=== PATIENT | male | born 1980 | race Caucasian/White ===

== ENCOUNTER 2024-07-25 03:06 | Emergency (ER) | payer MEDICAID, SELFPAY ==
--- NOTE | ~2024-07-25 | XR_ITS ---
EXAMINATION: XR CHEST CLINICAL INFORMATION: cough/sob COMPARISON: May 09, 2010. TECHNIQUE: Frontal view of the chest was obtained. FINDINGS: No significant abnormality is noted involving the heart, lungs, mediastinum, bony thorax or soft tissues. XR/XR chest 1V IMPRESSION: Unremarkable examination. Electronically signed by: Jourdan Smith MD 07/25/2024 03:53 AM [facility]
[2024-07-25 03:07] VITALS: BP 135/84; PULSE 110; RESP 20; TEMP 37.1; O2SAT 100; BMI 28.8
[2024-07-25 03:31] VITALS: BP 127/74; PULSE 98; RESP 20; TEMP 36.9; O2SAT 99
--- NOTE | 2024-07-25 03:43 | ED.ASTHMA ---
HPI - Asthma General Chief Complaint: Asthma Stated Complaint: Headache, sob Time Seen by Provider: 07/25/24 03:24 Source: patient Mode of arrival: ambulatory Limitations: no limitations History of Present Illness ED Provider: HPI Narrative: Patient's history of asthma complaining of shortness a breath with cough for 5 hours unable to speak full sentences no fever no chills also patient has been congested for last few days Related Data Previous Rx's ?Medication ?Instructions ?Recorded albuterol sulfate 2.5 mg/3 mL 2.5 mg (3 mL) inhalation Q4-6H PRN 07/25/24 (0.083 %) solution for nebulization shortness of breath or wheezing #90 mL albuterol sulfate 90 mcg/actuation 2 puff inhalation Q6H PRN 07/25/24 aerosol inhaler shortness of breath or wheezing #8.5 grams prednisone 20 mg tablet 40 mg (2 x 20 mg) PO DAILY #10 tabs 07/25/24 Allergies Allergy/AdvReac Type Severity Reaction Status Date / Time SEASONAL ALLERGIES Allergy Unknown ALLERGIC Uncoded 07/25/24 03:13 RHINITIS Review of Systems Review of Systems: Yes all other systems are reviewed and are negative PMFSH Social History Social History Alcohol intake: never Smoked in Last 30 Days: Yes Use of substances other than those prescribed or required for medical reasons: Yes Substance Use Type: Marijuana Substance Use Frequency: Occasionally Advance Directives: No Advance Directives Information Provided: Yes Do you have a plan to hurt others: No Plan Physical Exam Vital Signs: Vital Signs: Last Vital Signs Temp 98.7 F 07/25/24 06:17 Pulse 86 07/25/24 06:17 Resp 18 07/25/24 06:17 BP 95/62 07/25/24 06:17 Pulse Ox 96 07/25/24 06:17 O2 Del Method Room Air 07/25/24 06:17 BMI result Body Mass Index 28.8 Appearance: Alert. Oriented X3. No acute distress. Eyes: No pallor or icterus ENT: Pharynx normal. Oral Mucosa moist Neck: Normal inspection. Neck supple. CVS: Normal heart rate and rhythm. Pulses normal. Bilateral wheezing n no rales Abdomen: Soft and nontender. Bowel sounds are present, no mass palpable, no CVA tenderness Skin: Skin warm and dry. Normal skin color. Normal skin turgor. Extremities: No lower extremity edema. No calf tenderness Neuro: Oriented X 3. No motor deficit. Medications Administered Discontinued Medications Generic Name Dose Route Start Last Admin Trade Name Freq PRN Reason Stop Dose Admin Albuterol Sulfate 5 mg/ 0 mg 07/25/24 04:02 07/25/24 04:15 Albuterol/Ipratropium 3 ml INHALE 07/25/24 04:03 1 each ONCE ONE Administration Prednisone 60 mg 07/25/24 04:02 07/25/24 04:22 Prednisone 20 Mg Tablet PO 07/25/24 04:03 60 mg ONCE ONE Administration Medical Decision Making Medical Decision Making [facility] Narrative: Patient's asthma with increased shortness a breath felt better after nebulizing treatment steroids discharge patient chest x-ray negative COVID flu RSV negative patient is saturating 96% room air Lab Data MDM Lab Attestation statement: I reviewed the patient's lab results. Labs: Lab Results 07/25/24 Range/Units 03:35 Influenza Type A (PCR) NEGATIVE (Negative) Influenza Type B (PCR) NEGATIVE (Negative) RSV RNA Qual (PCR) NEGATIVE (Negative) SARS-CoV-2 RNA (RT-PCR) NEGATIVE (Negative) Independent Interpretation I performed an independent interpretation of an: Plain X-Ray Interpretation: NAD Radiology Impression Discussion of test interpretation with radiology: I have reviewed the radiologist's reading. Discharge Plan Discharge Clinical Impression: Asthma with acute exacerbation Patient Disposition: Home, Self-Care Instructions: Asthma (ED) Additional Instructions: Continue to use your inhaler and use nebulizer treatment as needed Prednisone as prescribed Follow with PCP if not better Prescriptions: New albuterol sulfate 2.5 mg /3 mL (0.083 %) solution for nebulization 2.5 mg inhalation Q4-6H PRN (Reason: shortness of breath or wheezing) Qty: 90 0RF prednisone 20 mg tablet 40 mg PO DAILY Qty: 10 0RF albuterol sulfate 90 mcg/actuation HFA aerosol inhaler 2 puff inhalation Q6H PRN (Reason: shortness of breath or wheezing) Qty: 8.5 0RF Stand Alone Forms: Work/School Release Interventions: ED Discharge Assessment Last Done: 07/25/24 06:17 Discharge Date/Time: 07/25/24 06:18 Print Language: Irish
[2024-07-25 04:15] VITALS: PULSE 98; RESP 20; O2SAT 98
[2024-07-25] MEDS: Albuterol Sulfate 5 MG, Albuterol/Iprat 2.5/0.5MG 3 ML 3 ML INHALE (04:15)
[2024-07-25 04:17] LABS: Influenza A PCR NEGATIVE (Negative); Influenza B PCR NEGATIVE (Negative); Resp Syncy Virus RNA Qual PCR NEGATIVE (Negative); SARS COV2 PCR INHOUSE NEGATIVE (Negative)
[2024-07-25] MEDS: predniSONE 20 MG TABLET 60 MG PO (04:22)
[2024-07-25 05:36] VITALS: BP 95/62; PULSE 86; RESP 18; TEMP 37.1; O2SAT 96
[2024-07-25 06:17] VITALS: BP 95/62; PULSE 86; RESP 18; TEMP 37.1; O2SAT 96
== END 2024-07-25 06:18 | disposition home or self-care (01) ==
PROVIDERS: Emergency Provider Internal Medicine; PCP Student in an Organized Health Care Education/Training Program
DX: J45.901 Unspecified asthma with (acute) exacerbation (principal); R06.02 Shortness of breath; R51.9 Headache, unspecified; R05.9 Cough, unspecified; Z03.818 Encounter for observation for suspected exposure to other biological agents ruled out
CPT/HCPCS: 0241U; 71045; 94640; 99284

== ENCOUNTER 2025-05-10 15:21 | Outpatient (REF) | payer MEDICAID, SELFPAY ==
[2025-05-10 16:12] LABS: Appearance Urine Clear; Glucose Urine UA Negative (Negative); PH 6.0 (5.0-9.0); Specific Gravity - Urine 1.025 (1.005-1.025)
[2025-05-10 17:32] LABS: CT PCR Urine NOT DETECTED (Not Detect.); NG PCR Urine NOT DETECTED (Not Detect.)
[2025-05-10 18:26] LABS: MANUAL DIFF FLAG NO
[2025-05-10 18:27] LABS: Hematocrit 41.4 % (42.0-52.0); Hemoglobin 13.5 g/dl (14.0-18.0); Imm Gran Abs Auto 0.04 X10*3/uL (0.00-0.03); Imm Gran Pct Auto 0.6 % (0.0-0.4); Lymphocytes Absolute Auto 2.6 X10*3/uL (1.2-4.9); Mean Corpuscular HGB Conc 32.6 g/dl (31.0-36.0); Mean Corpuscular Hemoglobin 27.8 pg (27.0-33.0); Mean Corpuscular Volume 85.2 fL (80.0-98.0); NRBC Abs Auto 0.000 X10*3/uL (0.0-0.012); NRBC Pct Auto 0.0 /100WBC (0.0-0.2); Platelet Count 198 X10*3/uL (160-400); Red Blood Count 4.86 X10*6/uL (4.60-5.80); White Blood Count 6.6 X10*3/uL (4.8-10.8)
[2025-05-10 19:09] LABS: Alanine Aminotransferase 39 U/L (0-40); Albumin Level 4.5 g/dL (3.5-5.0); Alkaline Phosphatase 87 U/L (39-117); Anion Gap 11 (12-20); Aspartate Amino Transferase 31 U/L (5-37); Blood Urea Nitrogen 16 mg/dL (9-16); Calcium 9.2 mg/dL (8.4-10.2); Carbon Dioxide 29 mmol/L (22-29); Chloride 105 mmol/L (96-108); Cholesterol 144 mg/dL (<200); Estimated Glomerular Filt Rate > 60; HDL Cholesterol 31 mg/dL (>40); Potassium 4.3 mmol/L (3.3-5.1); Sodium 141 mmol/L (135-145); Total Protein 7.4 g/dL (6.5-8.0); Triglycerides 149 mg/dL (<150)
[2025-05-10 19:14] LABS: Thyroid Stimulating Hormone 2.31 uIU/mL (0.32-4.0)
[2025-05-11 04:16] LABS: HBS Num1 5.89 mIU/mL (0-7.99); HBc Num1 12.34 S/CO (0.00-0.79); HBsAGNum1 0.33 S/CO (0.00-0.99); HIV Num 1 0.05 S/CO (0.00-0.99); Hepatitis B Surface Antigen Negative (Negative); ~HepC Num1 13.21 S/CO (0.00-0.79); ~Hepatitis B Surface Antibody NONREACTIVE (Nonreactive); ~Hepatitis C Antibody Reactive (Nonreactive)
[2025-05-11 05:00] LABS: HBc Num2 10.96 S/CO; HBc Num3 10.92 S/CO
[2025-05-12 10:53] LABS: Hepatitis B Core Antibody IgM NON-REACTIVE (NON-REACTIVE)
== END 2025-05-10 15:22 | disposition home or self-care (01) ==
LOC: HO.HHCL 15:21
PROVIDERS: PCP Nurse Practitioner Family; Visit Provider Nurse Practitioner Family
DX: Z00.00 Encounter for general adult medical examination without abnormal findings (principal); Z11.3 Encounter for screening for infections with a predominantly sexual mode of transmission; Z11.8 Encounter for screening for other infectious and parasitic diseases; Z11.4 Encounter for screening for human immunodeficiency virus [HIV]; Z11.59 Encounter for screening for other viral diseases
CPT/HCPCS: 36415; 80053; 80061; 81001; 84443; 85025; 86704; 86705; 86706; 86803; 87340; 87389; 87491; 87591

== ENCOUNTER 2025-06-30 14:20 | Outpatient (REF) | payer MEDICAID, SELFPAY ==
[2025-06-30 16:28] LABS: INTERNATIONAL NORM RATIO 1.0 (0.9-1.1); Prothrombin Time 12.1 SEC (11.2-13.5)
[2025-06-30 16:36] LABS: Total Protein Urine Random < 7 mg/dL (<12)
--- OUTSIDE RECORDS SUMMARY | 2025-06-30 21:14 | XMS_ITS | Encounter Summary ---
Author Organization [employer] Address [address] [facility] 7 [place] [address] Care Team Providers Care Interventional Physician Name Role Phone Patricia Valle MD Primary Care Pro vider David Wright COLLISION REPAIR TECHNICIAN Unavailable Unavailable Yumi Ferrer Primary Care Provider [phone] Titus Mayfield MD Primary Care Provider [phone] Reason for Visit * Reason Comments Med Refill Encounter Details Date Type Department Care Team (Late st Contact Info) Description 09/30/2024 Refill [facility] [address] [place], [place] [phone] Kathrine Mederos MD 230 [place], [place] [phone] Social History Tobacco Use Types Packs/Day Years Used Date Smoking Tobacco: Every Day Cigarettes Depression Answer Date Recorded Patient Health Questionnaire-9 Score 8 02/22/2024 Patient Health Questionnaire-9 Score 8 02/22/2024 Last PHQ-9: Questionnaire Data Not on file 0 02/22/2024 Housing Stability Answer Date Recorded What is your housing situation today? I have hussain mchugh 06/22/[address] you li ve. Do you have problems with any of the following? None of the above 06/22/2023 Food Insecurity Answer Date Recorded Within the past 12 months, y ou worried that your food would run out before you got money to buy more: Never True 06/22/2023 Within the past 12 months,th e food you bought just didn't last and you didn't have enough money to get more: Never True 01/2023 Transportation Answer Date Recorded In the past 12 months, has l ack of transportation kept you from medical appts, meetings, work or from getting things needed for daily living? No 06/22/2023 Utilities Answer Date Recorded In the past 12 months, has t he electric, gas, oil or water company threatened to shut off services in your home? No 06/22/2023 Depression Answer Date Recorded Patient Health Questionnaire-2 Score 3 02/22/2024 Sex and Gender Information Value Date Recorded Sex Assigned at Male 06/16/2022 10:19 AM EDT Legal Sex Male 10:19 AM EDT Gender Identity Male 06/16/2022 10:19 AM EDT Sexual Orientation Straight 06/16/2022 10 :19 AM EDT documented as of this encounter Plan of Treatment Upcoming Encounters Date Type Department Care Team (Late st Contact Info) Description 08/22/2025 10:15 AM EST Office Visit [facility] [address] [place] [phone] Titus Mayfield MD [address] [place] [phone] documented as of this encounter Visit Diagnoses Not on filedocumented in this encounter Additional Health Concerns Assessment Noted Time PHQ-9 Depression Total Score: 8 02/22/20 24 3:06 PM EDT documented as of this encounter Care Teams Interventional Physician Relationship Specialty Start Date End Date Patricia Valle MD [address] [place] [phone] PCP - General Internal Medicine 05/27/23 04/12/25 Yumi Ferrer FNP [address] [place] [address] PCP - General Family Medicine 04/13/25 06/28/25 Titus Mayfield MD [address] [place] [address] [phone] PCP - General Internal Medicine 06/29/25 David Wright FNP [address] [place] [address] Nurse Practitioner Family Medicine 07/13/23 02/23/25 documented as of this encounter
--- OUTSIDE RECORDS SUMMARY | 2025-06-30 21:14 | XMS_ITS | Encounter Summary ---
Author Organization [employer] Address [address] [place] [address] Care Team Providers Care Solid Waste Facility Supervisor Name Role Phone Patricia Valle MD Primary Care Pro vider David Wright LEAF SORTER Unavailable Unavailable Yumi Ferrer Primary Care Provider [phone] Titus Mayfield MD Primary Care Provider [phone] Reason for Visit * Reason Onset Date Comments Call Back Request 10/12/2024 Encounter Details Date Type Department Care Team ([facility] st Contact Info) Description 10/12/[address] [facility] 230 [place] [address] Patricia Valle MD 230 [place], [place] [phone] Call Back Request Social History Tobacco Use Types Packs/Day Years Used Date Smoking Tobacco: Every Day Cigarettes Depression Answer Date Recorded Patient Health Questionnaire-9 Score 8 02/22/2024 Patient Health Questionnaire-9 Score 8 02/22/2024 Last PHQ-9: Questionnaire Data Not on file 0 02/22/2024 Housing Stability Answer Date Recorded What is your housing situation today? I have hussain jeison 06/22/[address] you li [...] AM EDT documented as of this encounter Miscellaneous Notes * Telephone Encounter - Destiny Hagen - 10/12/2024 12:46 PM EST Tc from pt requesting status of change of provider he inform he had made a report of how he don't feel comfortable with provider. Pt was told provider was going to change and still shows is [facility] as he will like an appointment with another provider. [phone] documented in this encounter Plan of Treatment Upcoming Encounters Date Type Department Care Team (Late st Contact Info) Description 08/22/2025 10:15 AM EST Office Visit [facility] [address] [place] [phone] Name, MD Titus [address] [place] [address] documented as of this encounter Visit Diagnoses Not on filedocumented in this encounter Additional Health Concerns Assessment Noted Time PHQ-9 Depression Total Score: 8 02/22/20 24 3:06 PM EDT documented as of this encounter Care Teams Solid Waste Facility Supervisor Relationship Specialty Start Date End Date Patricia Valle MD [address] [place] [address] PCP - General Internal Medicine 05/27/23 04/12/25 Yumi Ferrer FNP [address] [place] [address] PCP - General Family Medicine 04/13/25 06/28/25 Titus Mayfield MD [address] [place] [address] PCP - General Internal Medicine 06/29/25 David Wright FNP 230 [place] [address] Nurse Practitioner Family Medicine 07/13/23 02/23/25 documented as of this encounter
--- OUTSIDE RECORDS SUMMARY | 2025-06-30 21:14 | XMS_ITS | Encounter Summary ---
Author Organization [employer] Address [address] [place] [address] Care Team Providers Care Food Processing Chemist Name Role Phone Patricia Valle MD Primary Care Pro vider Yumi Ferrer RING SEWER Primary Care Provider [phone] Titus Mayfield MD Primary Care Provider [phone] Reason for Visit * Reason Comments Med Refill Encounter Details Date Type Department Care Team (Late st Contact Info) Description 04/05/2025 Refill [facility] [address] [place] [address] [phone] Patricia Valle MD 230 [place], [place] [phone] Psychosis, unspecified psychosis type (CMS/HCC) Social History Tobacco Use Types Packs/Day Years [...] AM EST Office Visit [facility] [address] [place] [address] Titus Mayfield MD [address] [place] [address] documented as of this encounter Visit Diagnoses Diagnosis Psychosis, unspecified psychosis type (CMS/HCC) (HCC) documented in this encounter Additional Health Concerns Assessment Noted Time PHQ-9 Depression Total Score: 8 02/22/20 24 3:06 PM EDT documented as of this encounter Care Teams Food Processing Chemist Relationship Specialty Start Date End Date Patricia Valle MD [address] [place] [phone] PCP - General Internal Medicine 05/27/23 04/12/25 Yumi Ferrer FNP [address] [place] [address] [phone] PCP - General Family Medicine 04/13/25 06/28/25 Titus Mayfield MD [address] [place] [address] [phone] PCP - General Internal Medicine 06/29/25 documented as of this encounter
--- OUTSIDE RECORDS SUMMARY | 2025-06-30 21:14 | XMS_ITS | Encounter Summary ---
Author Organization [employer] Address [address] [place] [phone] Care Team Providers Care Supervisor Blueprinting And Photocopy Name Role Phone Yumi Ferrer VAMSHI Primary Care Provider [phone] Name, Titus BARAHONA Primary Care Provider [phone] Reason for Visit * Reason Comments Med Refill Encounter Details Date Type Department Care Team ([facility] st Contact Info) Description 05/01/2025 Refill [facility] 230 [place], [place] [phone] Patricia Valle MD 230 [place], [place] [phone] Psychosis, unspecified psychosis type (CMS/HCC) Social History Tobacco Use Types Packs/Day Years Used Date Smoking Tobacco: Every Day Cigarettes Depression Answer Date Recorded Patient Health Questionnaire-9 Score 8 02/22/2024 Patient Health Questionnaire-9 Score 8 02/22/2024 Last PHQ-9: Questionnaire Data Not on file 0 02/22/2024 Housing Stability Answer Date Recorded What is your housing situation today? I have hussain mchugh 05/03/[address] you li ve. Do you have problems with any of the following? None of the above 05/03/2025 Food Insecurity Answer Date Recorded Within the past 12 months, y ou worried that your food would run out before you got money to buy more: Never True 05/03/2025 Within the past 12 months,th e food you bought just didn't last and you didn't have enough money to get more: Never True Transportation Answer Date Recorded In the past 12 months, has l ack of transportation kept you from medical appts, meetings, work or from getting things needed for daily living? No 05/03/2025 Utilities Answer Date Recorded In the past 12 months, has t he electric, gas, oil or water company threatened to shut off services in your home? No 05/03/2025 Depression Answer Date Recorded Patient Health Questionnaire-2 Score 3 02/22/2024 Internet Access Answer Date Recorded Internet Access Q1 Yes 05/03/2025 Internet Access Q2 Not on file 05/03/2025 Sex and Gender Information Value Date Recorded Sex Assigned at Male 06/16/2022 10:19 AM EDT Legal Sex Male 10:19 AM EDT Gender Identity Male 06/16/2022 10:19 AM EDT Sexual Orientation Straight 06/16/2022 10 :19 AM EDT documented as of this encounter Plan of Treatment Upcoming Encounters Date Type Department Care Team (Late st Contact Info) Description 08/22/2025 10:15 AM EST Office Visit [facility] [address] [place] [address] Titus Mayfield MD [address] [place] [address] documented as of this encounter Visit Diagnoses Diagnosis Psychosis, unspecified psychosis type (CMS/HCC) (HCC) documented in this encounter Additional Health Concerns Assessment Noted Time PHQ-9 Depression Total Score: 8 02/22/20 24 3:06 PM EDT documented as of this encounter Care Teams Supervisor Blueprinting And Photocopy Relationship Specialty Start Date End Date Yumi Ferrer FNP [address] [place] [phone] PCP - General Family Medicine 04/13/25 06/28/25 Titus Mayfield MD [address] [place] [phone] PCP - General Internal Medicine 06/29/25 documented as of this encounter
--- OUTSIDE RECORDS SUMMARY | 2025-06-30 21:15 | XMS_ITS | Encounter Summary ---
Author Organization [employer] Address [address] [facility] 7 [place] [address] Care Team Providers Care Public Speaking Coach Name Role Phone Yumi Ferrer VAMSHI Primary Care Provider [phone] Name, Titus BARAHONA Primary Care Provider [phone] Encounter Details Date Type Department Care Team ([facility] st Contact Info) Description 06/22/2025 Orders Only [facility] 230 [place], [place] [phone] Dorcas Stevens, BLAKE [address] [place] [address] Hepatitis C antibody test positive Social History Tobacco Use Types Packs/Day Years Used Date Smoking Tobacco: Former Cigarettes Passive Smoke Exposure: Past Comments:Stopped smoking in 2022 Depression Answer Date Recorded Patient Health Questionnaire-9 Score 21 05/10/2025 Patient Health Questionnaire-9 Score 21 05/10/2025 Last PHQ-9: Questionnaire Data Not on file 0 05/10/2025 Housing Stability Answer Date Recorded What is your housing situation today? I do not have housing (Staying with others, in a hotel, in a nursing home, living outside on the street, on a beach, in a car, or in a park 05/10/[address] you li ve. Do you have problems with any of the following? None of the above 05/10/2025 Food Insecurity Answer Date Recorded Within the past 12 months, y ou worried that your food would run out before you got money to buy more: Sometimes True 2024 Within the past 12 months,th e food you bought just didn't last and you didn't have enough money to get more: Sometimes True 05/10/2025 Transportation Answer Date Recorded In the past 12 months, has l ack of transportation kept you from medical appts, meetings, work or from getting things needed for daily living? Yes, it has kept me from non-medical meetings, work, or getting things that I need 05/10/2025 Utilities Answer Date Recorded In the past 12 months, has t he electric, gas, oil or water company threatened to shut off services in your home? No 05/03/2025 Depression Answer Date Recorded Patient Health Questionnaire-2 Score 5 05/10/2025 Internet Access Answer Date Recorded Internet Access Q1 No 05/10/2025 Internet Access Q2 I cannot afford it 05/10/2025 Sex and Gender Information Value Date Recorded Sex Assigned at Male 06/16/2022 10:19 AM EDT Legal Sex Male 10:19 AM EDT Gender Identity Male 06/16/2022 10:19 AM EDT Sexual Orientation Straight 06/16/2022 10 :19 AM EDT documented as of this encounter Plan of Treatment Upcoming Encounters Date Type Department Care Team (Late st Contact Info) Description 08/22/2025 10:15 AM EST Office Visit [facility] [address] [place] [phone] Name, MD Titus [address] [place] [phone] Scheduled Orders Name Type Priority Associated Diagnoses Orde r Schedule Hepatitis C Viral RNA, Quantitative, Real-Time PCR Lab Routine Hepatitis C antibody test positive Expected: 06/22/2025 (Approximate), Expires: 06/22/2026 Prothrombin Time-INR Lab Routine Hepatitis C antibody test positive Expected: 06/22/2025 (Approximate), Expires: 06/22/2026 Hepatitis A Antibody, Total Lab Routine Hepatitis C antibody test positive Expected: 06/22/2025 (Approximate), Expires: 06/22/2026 Hepatitis C Viral RNA, Genotype, LiPA Lab Routine Hepatitis C antibody test positive Expected: 06/22/2025 (Approximate), Expires: 06/22/2026 Liver Fibrosis (HCV), FibroTest-ActiTest Panel Lab Routine Hepatitis C antibody test positive Expected: 06/22/2025 (Approximate), Expires: 06/22/2026 documented as of this encounter Visit Diagnoses Diagnosis Hepatitis C antibody test positive Other and unspecified nonspecific immunological findings documented in this encounter Additional Health Concerns Assessment Noted Time PHQ-9 Depression Total Score: 21 025 3:17 PM EDT documented as of this encounter Care Teams Public Speaking Coach Relationship Specialty Start Date End Date Yumi Ferrer FNP 230 [place] [address] PCP - General Family Medicine 04/13/25 06/28/25 Name, MD Titus [address] [place] [address] PCP - General Internal Medicine 06/29/25 documented as of this encounter
--- OUTSIDE RECORDS SUMMARY | 2025-06-30 21:15 | XMS_ITS | Encounter Summary ---
Author Organization [employer] Address [address] [facility] 7t [place] [address] Care Team Providers Care Labourers Name Role Phone Name, Titus BARAHONA Primary Care Provider [phone] Encounter Details Date Type Department Care Team ([facility] st Contact Info) Description 06/30/2025 Telephone [facility] 230 [place], [place] [phone] Jeanette Arroyo RN 230 [place] [address] Social History Tobacco Use Types Packs/Day Years [...] with others, in a hotel, in a fdc, living outside on the street, on a [...] encounter Miscellaneous Notes * Telephone Encounter - Jeanette Arroyo RN - 06/30/2025 8:26 AM EST RN received referral for Hep C treatment, but there is no resulted Hep C RNA, only a positive ATB. Pt is aware and will come complete BW to determine if treatment is necessary. Pt agrees to POC. RN will monitor for results to determine treatment plan if needed. documented in this encounter Plan of Treatment Upcoming Encounters Date Type Department Care Team (Late st Contact Info) Description 08/22/2025 10:15 AM EST Office Visit [facility] [address] [place] [address] Name, MD Titus [address] [place] [address] documented as of this encounter Visit Diagnoses Not on filedocumented in this encounter Additional Health Concerns Assessment Noted Time PHQ-9 Depression Total Score: 21 025 3:17 PM EDT documented as of this encounter Care Teams Labourers Relationship Specialty Start Date End Date NameTitus MD [address] [place] [address] PCP - General Internal Medicine 06/29/25 documented as of this encounter
--- OUTSIDE RECORDS SUMMARY | 2025-06-30 21:15 | XMS_ITS | Encounter Summary ---
Author Organization [employer] Address [address] [place] [address] Care Team Providers Care Evaluator Transfer Students Name Role Phone Patricia Valle MD Primary Care Pro vider David Wright GOLD MARKER Unavailable Unavailable Yumi Ferrer Primary Care Provider Titus Mayfield MD Primary Care Provider [phone] Reason for Visit * Reason Onset Date Comments Med Refill 2025 Encounter Details Date Type Department Care Team (Late st Contact Info) Description 2025 Telephone [facility] 230 [place], [place] [phone] Patricia Valle MD 230 [place], [place] [phone] Med Refill Social History Tobacco Use Types Packs/Day Years [...] encounter Miscellaneous Notes * Telephone Encounter - Titus Estevez - 2025 2:26 PM EDT TC from pt requesting medication refill. Medications needing refill : clonazePAM (KlonoPIN) 1 MG tablet To be sent to: [facility] [address] documented in this encounter Plan of Treatment Upcoming Encounters Date Type Department Care Team (Late st Contact Info) Description 08/22/2025 10:15 AM EST Office Visit [facility] [address] [place] [phone] Name, MD Titus [address] [place] [phone] documented as of this encounter Visit Diagnoses Not on filedocumented in this encounter Additional Health Concerns Assessment Noted Time PHQ-9 Depression Total Score: 8 02/22/20 24 3:06 PM EDT documented as of this encounter Care Teams Evaluator Transfer Students Relationship Specialty Start Date End Date Patricia Valle MD [address] [place] [address] PCP - General Internal Medicine 05/27/23 04/12/25 Yumi Ferrer FNP 230 [place] [address] PCP - General Family Medicine 04/13/25 06/28/25 Titus Mayfield MD 230 [place] [address] PCP - General Internal Medicine 06/29/25 David Wright FNP 230 [place] [address] Nurse Practitioner Family Medicine 07/13/23 02/23/25 documented as of this encounter
--- OUTSIDE RECORDS SUMMARY | 2025-06-30 21:15 | XMS_ITS | Encounter Summary ---
Author Organization [employer] Address [address] [facility] [address] [place] [address] Care Team Providers Care Diabetes Educator Name Role Phone Rosanne Ramirez Primary Care Provider Madeleine Patricia Arce MD Primary Care Pro vider David Wright Unavailable Unavailable Yumi Ferrer Primary Care Provider [phone] Titus Mayfield MD Primary Care Provider [phone] Reason for Visit * Reason Onset Date Comments Lab Orders 12/12/2022 Encounter Details Date Type Department Care Team (Late st Contact Info) Description 12/12/2022 Telephone [facility] [address] [place] [address] Rosanne Ramirez FNP Lab Orders Social History Tobacco Use Types Packs/Day Years Used Date Smoking Tobacco: Every Day Cigarettes Sex and Gender Information Value Date Recorded Sex Assigned at Male 06/16/2022 10:19 AM EDT Legal Sex Male 10:19 AM EDT Gender Identity Male 06/16/2022 10:19 AM EDT Sexual Orientation Straight 06/16/2022 10 :19 AM EDT COVID-19 Exposure Response Date Recorded In the last 10 days, have yo u been in contact with someone who was confirmed or suspected to have Coronavirus/COVID-19? No / Unsure 11/21/2022 2:33 PM EDT documented as of this encounter Miscellaneous Notes * Telephone Encounter - Nicole Chew RN - 12/15/2022 11:51 AM EDT TC X1 to pt regarding message below. Unable to LVM as VM is not set up. If pt returns call, please let him know that lab orders were placed and can come in at pt convenience to get labwork done priorto next appt with PCP. * Telephone Encounter - Nicole Chew RN - 12/12/2022 4:25 PM EDT Last OV it was discussed that PCP would order labs during next visit on 12/23/22. Will send to PCP tosee if PCP is agreeable to order labs prior to next week. * Telephone Encounter - Deedee Ahmadi - 12/12/2022 3:50 PM EDT Tc from patient requesting lab test talked about in the last PE appt on 11/21/22. documented in this encounter Plan of Treatment Upcoming Encounters Date Type Department Care Team (Late st Contact Info) Description 08/22/2025 10:15 AM EST Office Visit [facility] [address] [place] [id number] Name, MD Titus [address] [place] [id number] documented as of this encounter Visit Diagnoses Not on filedocumented in this encounter Additional Health Concerns Assessment Noted Time PHQ-9 Depression Total Score: 8 11/19/19 1:57 PM EDT documented as of this encounter Care Teams Diabetes Educator Relationship Specialty Start Date End Date Rosanne Ramirez FNP PCP - General Family Medicine 02/14/22 05/26/23 Patricia Valle MD [address] [place] [id number] PCP - General Internal Medicine 05/27/23 04/12/25 Yumi Ferrer FNP [address] [place] [id number] PCP - General Family Medicine 04/13/25 06/28/25 Titus Mayfield MD [address] [place] [id number] PCP - General Internal Medicine 06/29/25 David Wright FNP [address] [place] [id number] Nurse Practitioner Family Medicine 07/13/23 02/23/25 documented as of this encounter
--- OUTSIDE RECORDS SUMMARY | 2025-06-30 21:15 | XMS_ITS | Clinical Summary ---
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 Monocytes Absolute Auto 0.6 0.1 - 1.2 X10*3/uL [facility] Eosinophils Absolute Auto 0.2 0.0 - 0.4 X10*3/uL [facility] Basophils Absolute Auto 0.1 0.0 - 0.2 X10*3/uL [facility] NRBC Abs Auto 0.000 0.0 - 0.012 X10*3/uL [facility] Blood Venous blood specimen / Unknown 05/10/2025 3:49 PM EDT 05/10/2025 6:20 PM EDT us Yumi Ferrer [employer] LAB BLOOD ORDERABLES Final Res ult [facility] [address] [place] [address] [phone] * (ABNORMAL) Hepatitis C Antibody with Reflex to HCV, RNA, Quantitative, Real- Time PCR (05/10/2025 3:49 PM EDT) Pathologist [facility] Hepatitis C Antibody Reactive( A) Nonreactive [facility] Comment:Presumptive evidence of antibodies to HCV. Blood Venous blood specimen / Unknown 05/10/2025 3:49 PM EDT 05/10/2025 6:20 PM EDT [facility] BLOOD ORDERABLES Final Res ult Performing Organization Address [facility] de Phone Number [facility] [address] [place] [phone] * Hepatitis B Core??Antibody (IgM) (05/10/2025 3:49 PM EDT) Pathologist [facility] Hepatitis B Core Antibody IgM NON-REACTI VE NON-REACTI VE [facility] Comment:For additional infor azar, please refer [email or web address]/faq/FUB735(This link is being provided for informational/educational purposes only.)THIS TEST WAS PERFORMED AT:[employer] [place] [phone] SANON MD 05/10/2025 3:49 PM EDT 05/10/2025 6:[address] [facility] BLOOD ORDERABLES Final Res ult Performing Organization Address [facility] Co de Phone Number [facility] [address] [place] [phone] * Hepatitis B surface antigen, EIA (05/10/2025 3:49 PM EDT) Pathologist [facility] Hepatitis B Surface Ag Negative Negative [facility] Blood Venous blood specimen / Unknown 05/10/2025 3:49 PM EDT 05/10/2025 6:20 PM EDT [employer] [facility] BLOOD ORDERABLES Final Res ult Performing Organization Address City/[facility]/ZIP Co de Phone Number [facility] [address] [place] [phone] * Hepatitis B Core Antibody, Total (05/10/2025 3:49 PM EDT) Hepatitis B Core Antibody Reactive Nonreactive [facility] Comment:Presumptive evidence of anti-HBc. Blood Venous blood specimen / Unknown 05/10/2025 3:49 PM EDT 05/10/2025 6:20 PM EDT [facility] BLOOD ORDERABLES Final Res ult Performing Organization Address [facility]/ZIP Co de Phone Number [facility] [address] [place] [phone] * HIV-1/2 Antigen and Antibodies, Fourth Generation, with Reflexes (05/10/2025 3:49 PM EDT) HIV AB/AG Nonreactive Nonreactive [facility] Comment:HIV-1 p24 Ag and/or HIV-1/HIV-2 Ab not detected.A test result that is nonreactive does not exclude thepossibility of exposure to or infection with HIV-1 and/orHIV-2. Nonreactive results in this assay for individualswith prior exposure to HIV-1 and/or HIV-2 may be due toantigen and antibody levels that are below the limit ofdetection of this assay.The vushaper HIV Ag/Ab Combo assay result andsupplemental assay results should be interpreted inconjunction with the patient's clinical presentation,history and other laboratory results. If the results areinconsistent with clinical evidence, additional testing issuggested to confirm the result. Blood Venous blood specimen / Unknown 05/10/2025 3:49 PM EDT 05/10/2025 6:20 PM EDT [employer] LAB BLOOD ORDERABLES Final Res ult Performing Organization Address [facility] Co de Phone Number [facility] [address] [place] [phone] * Hepatitis B Surface Antibody, Qualitative (05/10/2025 3:49 PM EDT) Pathologist [facility] ~Hepatitis B Surface Antibody NONREACTIVE Nonreactive [facility] Comment:Nonreactive: < 8.00 mIU/mL Blood Venous blood specimen / Unknown 05/10/2025 3:49 PM EDT 05/10/2025 6:20 PM EDT Yumi Ferrer [employer] LAB BLOOD ORDERABLES Final Res ult Performing Organization Address [facility] Co de Phone Number [facility] [address] [place] [phone] * TSH (05/10/2025 3:49 PM EDT) [facility] Thyroid Stimulating Hormone 2.31 0.32 - 4.0 uIU/mL [facility] Comment:TSH 3rd Generation ( [facility]) Blood Venous blood specimen / Unknown 05/10/2025 3:49 PM EDT 05/10/2025 6:20 PM EDT Yumi Amaliao [facility] LAB BLOOD ORDERABLES Final Res ult Performing Organization Address [facility] Co de Phone Number [facility] [address] [place] [phone] * (ABNORMAL) Lipid Panel, Standard (05/10/2025 3:49 PM EDT) [facility] Triglycerides 149 <150 mg/dL [facility] Comment:Desirable Triglyceri de: less than 150 mg/dLBorderline High Triglyceride 150-199 mg/dLHigh Triglyceride: 200-499 mg/dLVery High Triglyceride: greater than or equal to 5OO mg/dL Cholesterol 144 <200 mg/dL [facility] Comment:Desirable Cholestero l: less than 200 mg/dLBorderline High Cholesterol: 200-239 mg/dLHigh Cholesterol: greater than 239 mg/dL LDL Cholesterol Calculated 84 <100 mg/dL [facility] Comment:Desirable LDL: less than 100 mg/dLNear Optimal/Above Optimal LDL: 110- 129 mg/dLBorderline High LDL: 130-159 mg/dLHigh LDL: 160-189 mg/dLVery High LDL: greater than or equal to 190 mg/dL HDL Cholesterol 31(L) >40 mg/dL [facility] Comment:Desirable HDL: great er than 40 mg/dL Note: This HDL assay may give artificially low results in patients with liver disease. Blood Venous blood specimen / Unknown 05/10/2025 3:49 PM EDT 05/10/2025 6:20 PM EDT us Yumi Ferrer [employer] LAB BLOOD ORDERABLES Final Res ult [facility] [address] [place] [phone] * (ABNORMAL) Comprehensive Metabolic Panel (05/10/2025 3:49 PM EDT) Sodium 141 135 - 145 mmol/L [facility] Potassium 4.3 3.3 - 5.1 mmol/L [facility] Chloride 105 96 - 108 mmol/L [facility] Carbon Dioxide 29 22 - 29 mmol/L [facility] Anion Gap 11(L) 12 - 20 [facility] Urea Nitrogen (BUN) 16 9 - 16 mg/dL [facility] Creatinine, Serum 1.02 0.5 - 1.4 mg/dL [facility] Estimated Glomerular Filt Rate >60 [facility] Comment:Chronic Kidney Disea se: Estimated GFR < 60 mL/min/1.01f9Gmoyqy Kidney Disease: Estimated GFR < 15 mL/min/1.73m2 Glucose 84 60 - 115 mg/dL [facility] Calcium 9.2 8.4 - 10.2 mg/dL [facility] Bilirubin, Total 0.4 0.0 - 1.0 mg/dL [facility] Aspartate Amino Transferase 31 5 - 37 U/L [facility] Alanine Aminotransferase 39 0 - 40 U/L [facility] Total Protein 7.4 6.5 - 8.0 g/dL [facility] Albumin Level 4.5 3.5 - 5.0 g/dL [facility] Alkaline Phosphatase 87 39 - 117 U/L [facility] Blood Venous blood specimen / Unknown 05/10/2025 3:49 PM EDT 05/10/2025 6:20 PM EDT us Yumi Ferrer [facility] BLOOD ORDERABLES Final Res ult [facility] [address] [place] [phone] * Chlamydia/N. Gonorrhoeae, PCR, Urine (05/10/2025 3:29 PM EDT) CT PCR, Urine NOT DETECTED Not Detect. [facility] Comment:A not detected test result does not exclude the possibilityof infection because test results can be affected byimproper specimen collection, concurrent antibiotic therapy,or the number of organisms in the specimen which may bebelow the sensitivity of the test. As with many diagnostictests, results from the Xpert CT/NG assay should beinterpreted in conjunction with other laboratory andclinical data available to the clinician.The Xpert CT/NG assay should not be used for the evaluationof suspected sexual abuse or for other medico-legalindications. Additional testing is recommended in anycircumstance when false positive or false negative resultscould lead to adverse medical, social or psychologicalconsequences. NG PCR, Urine NOT DETECTED Not Detect. [facility] Comment:A not detected test result does not exclude the possibilityof infection because test results can be affected byimproper specimen collection, concurrent antibiotic therapy,or the number of organisms in the specimen which may bebelow the sensitivity of the test. As with many diagnostictests, results from the Xpert CT/NG assay should beinterpreted in conjunction with other laboratory andclinical data available to the clinician.The Xpert CT/NG assay should not be used for the evaluationof suspected sexual abuse or for other medico-legalindications. Additional testing is recommended in anycircumstance when false positive or false negative resultscould lead to adverse medical, social or psychologicalconsequences. Urine (Urine, Random) 05/10/2025 3:29 PM EDT 05/10/2025 3:57 PM EDT [employer] LAB URINE ORDERABLES Final Res ult Performing Organization Address [facility]/ZIP Co de Phone Number [facility] [address] [place] [phone] * Urinalysis Complete (05/10/2025 3:21 PM EDT) Color Urine Yellow [facility] Appearance Urine Clear [facility] PH 6.0 5.0 - 9.0 [facility] Glucose Urine UA Negative Negative mg/dL [facility] Urine Blood Negative Negative [facility] Specific [place] - Urine 1.025 1.005 - 1.025 [facility] Urine Protein Negative Neg-Trace mg/dL [facility] Urine Ketones Negative Negative mg/dL [facility] Nitrite Urine Negative Negative [facility] Leukocyte Esterase Urine Negative Negative [facility] RBC Urine 0-2 0 - 2 /HPF [facility] Urine WBC 0-5 0 - 5 /HPF [facility] Urine Squamous Epithelial Cell 0-2 0 - 2 /HPF [facility] Urine Bacteria None Seen None Seen [facility] Hyaline Casts, Urine 0-2 0 - 2 /LPF [facility] Urine (Urine, Random) 05/10/2025 3:21 PM EDT 05/10/2025 3:57 PM EDT [employer] LAB URINE ORDERABLES Final Res ult Performing Organization Address City/[facility]/ZIP Co de Phone Number [facility] [address] [place] [phone] * POCT Hgb A1c (05/10/2025 2:16 PM EDT) Hemoglobin A1C 5.5 4.0 - 5.7 % QC Media Lot # [id number] Lot# Expiration Date [id number] Blood 05/10/2025 2:16 PM EDT Y[employer] POINT OF CARE TEST ENTER/EDIT ORDERABLES Final Result * POCT Glucose (05/10/2025 2:16 PM EDT) Glucose Blood, POC 90 60 - 200 mg/dL QC Media Lot # [id number] Lot# Expiration Date [id number] Blood Capillary blood specimen / Unknown 05/10/2025 2:16 PM EDT [employer] POINT OF CARE TEST ENTER/EDIT ORDERABLES Final Result from Last 3 Months Insurance Care Teams Heel Curver Relationship Specialty Start Date End Date Name, MD Titus [address] [place] [phone] PCP - General Internal Medicine 06/29/25
--- OUTSIDE RECORDS SUMMARY | 2025-06-30 21:15 | XMS_ITS | Encounter Summary ---
Author Organization [employer] Address [address] [facility] 7t [place] [address] Care Team Providers Care Outfitter Cabin Name Role Phone JamesRosanne Primary Care Provider Madeleine Patricia Arce MD Primary Care Pro vider David Wright Unavailable Unavailable Yumi Ferrer Primary Care Provider [phone] Titus Mayfield MD Primary Care Provider [phone] Reason for Visit * Reason Comments Med Refill Encounter Details Date Type Department [facility] Team ([facility] Contact Info) Description 12/03/2022 Refill [facility] [address], [place] [phone] David Wright FNP Social History Tobacco Use Types Packs/Day Years [...] PM EDT documented as of this encounter Plan of Treatment Upcoming Encounters Date Type Department Care Team ([facility] Contact Info) Description 08/22/2025 10:15 AM EST Office Visit [facility] [address] [place], [place] [phone] Titus Mayfield MD [address] [place] [phone] documented as of this encounter Visit Diagnoses Not on filedocumented in this encounter Additional Health Concerns Assessment Noted Time PHQ-9 Depression Total Score: 8 11/19/19 23 1:57 PM EDT documented as of this encounter Care Teams Outfitter Cabin Relationship Specialty Start Date End Date Rosanne Ramirez FNP PCP - General Family Medicine 02/14/22 05/26/23 Patricia Valle MD [address] [place] [address] PCP - General Internal Medicine 05/27/23 04/12/25 Yumi Ferrer FNP [address] [place] [phone] PCP - General Family Medicine 04/13/25 06/28/25 NameTitus MD [address] [place] [phone] PCP - General Internal Medicine 06/29/25 David Wright FNP [address] [place] [phone] Nurse Practitioner Family Medicine 07/13/23 02/23/25 documented as of this encounter
--- OUTSIDE RECORDS SUMMARY | 2025-06-30 21:15 | XMS_ITS | Encounter Summary ---
Author Organization [employer] Address [address] [place] [address] Care Team Providers Care Icu Rn Name Role Phone Patricia Valle MD Primary Care Pro vider David Wright TAP DANCER Unavailable Unavailable Yumi Ferrer Primary Care Provider [phone] Titus Mayfield MD Primary Care Provider [phone] Reason for Visit * Reason Onset Date Comments Med Refill 2025 Encounter Details Date Type Department Care Team (Late st Contact Info) Description 2025 Telephone [facility] [address] [place], [place] [phone] Patricia Valle MD [address] [place], [place] [phone] Med Refill Social History Tobacco Use Types [...] encounter Miscellaneous Notes * Telephone Encounter - Mable Celeste LPN - 2025 2:53 PM EDT Duplicate request. * Telephone Encounter - Titus Estevez - 2025 2:29 PM EDT TC from pt requesting medication refill. Medications needing refill : hydrOXYzine pamoate (Vistaril) 50 MG capsule zolpidem (Ambien) 10 MG tablet To be sent to: [facility] - [address] documented in this encounter Plan of Treatment Upcoming Encounters Date Type Department Care Team (Late st Contact Info) Description 08/22/2025 10:15 AM EST Office Visit [facility] [address] [place] [address] Name, MD Titus [address] [place] [address] documented as of this encounter Visit Diagnoses Not on filedocumented in this encounter Additional Health Concerns Assessment Noted Time PHQ-9 Depression Total Score: 8 02/22/20 24 3:06 PM EDT documented as of this encounter Care Teams Icu Rn Relationship Specialty Start Date End Date Patricia Valle MD [address] [place] [phone] PCP - General Internal Medicine 05/27/23 04/12/25 Yumi Ferrer FNP [address] [place] [phone] PCP - General Family Medicine 04/13/25 06/28/25 Chaparro, MD Titus [address] [place] [phone] PCP - General Internal Medicine 06/29/25 David Wright FNP [address] [place] [phone] Nurse Practitioner Family Medicine 07/13/23 02/23/25 documented as of this encounter
--- OUTSIDE RECORDS SUMMARY | 2025-06-30 21:15 | XMS_ITS | Encounter Summary ---
Author Organization [employer] Address [address] [facility] 7t [place] [address] Care Team Providers Care Underwriting Operations Manager Name Role Phone Name, Titus BARAHONA Primary Care Provider [phone] Encounter Details Date Type Department Care Team ([facility] st Contact Info) Description 06/30/2025 Orders Only [facility] MED[facility]INE [address] [place] [address] Yumi Ferrer FNP [address] [place] [address] Social History Tobacco Use Types Packs/Day Years [...] with others, in a hotel, in a mcfp, living outside on the street, on a [...] Description 08/22/2025 10:15 AM EST Office Visit [facility] [address] [place] [address] Name, MD Titus [address] [place] [address] documented as of this encounter Procedures Procedure Name Priority Date/Time Associated Diagnosis Comments PROTHROMBIN TIME-INR Routine 06/30/2025 2:24 PM EST documented in this encounter Results * Prothrombin Time-INR (06/30/2025 2:24 PM EST) Prothrombin Time 12.1 11.2 - 13.5 SEC [facility] INTERNATIONAL NORM RATIO 1.0 0.9 - 1.1 [facility] Comment:INTERNATIONAL NORMAL IZED RATIO (INR) [...] 06/30/2025 4:04 PM EST us Yumi Ferrer COSMETOLOGIST LAB BLOOD ORDERABLES Final Res ult [facility] [address] [place] [address] [phone] documented in this encounter Visit Diagnoses Not on filedocumented in this encounter Additional Health Concerns Assessment Noted Time PHQ-9 Depression Total Score: 21 025 3:17 PM EDT documented as of this encounter Care Teams Underwriting Operations Manager Relationship Specialty Start Date End Date Name, MD Titus [address] [place] [address] PCP - General Internal Medicine 06/29/25 documented as of this encounter
--- OUTSIDE RECORDS SUMMARY | 2025-06-30 21:16 | XMS_ITS | Encounter Summary ---
Author Organization [employer] Address [address] [place] [address] [address] [place] [address] Care Team Providers Care Forest Products Teacher Name Role Phone Yumi Ferrer Primary Care Provider [phone] Name, Titus BARAHONA Primary Care Provider Reason for Visit * Reason Comments Med Refill Encounter Details Date Type Department Care Team ([facility] st Contact Info) Description 06/15/2025 Refill [facility] [address] [place], [place] [phone] Yumi Ferrer FNP [address] [place] [address] Psychosis, unspecified psychosis type (CMS/HCC) (HCC) Social History Tobacco Use Types Packs/Day Years [...] with others, in a hotel, in a assisted, living outside on the street, on a [...] the past 12 months, has t he [employer], gas, oil or water [employer] threatened to shut off services in your [...] encounter Miscellaneous Notes * Telephone Encounter - VAMSHI Denise - 06/21/2025 12:55 PM EST Approving, but needs appt for additional refills. * Telephone Encounter - Shreya Brown RN - 06/15/2025 3:33 PM EDT Per teodorat, Clonazepam last picked up 05/22/25 for a 30 day supply. Refill bue 06/21/25. Will forwrad to PCP on 06/19/25 documented in this encounter Plan of Treatment Upcoming Encounters Date Type Department Care Team (Late st Contact Info) Description 08/22/2025 10:15 AM EST Office Visit [facility] [address] [place] [phone] NameTitus MD [address] [place] [phone] documented as of this encounter Visit Diagnoses Diagnosis Psychosis, unspecified psychosis type (CMS/HCC) (HCC) documented in this encounter Additional Health Concerns Assessment Noted Time PHQ-9 Depression Total Score: 21 025 3:17 PM EDT documented as of this encounter Care Teams Forest Products Teacher Relationship Specialty Start Date End Date Yumi Ferrer FNP [address] [place] [phone] PCP - General Family Medicine 04/13/25 06/28/25 Name, MD Titus [address] [place] [phone] PCP - General Internal Medicine 06/29/25 documented as of this encounter
[2025-07-05 21:07] LABS: HCV Log PCR <1.18 NOT DETECTED Log IU/mL (NOT DETECTED); HepC Viral Load <15 NOT DETECTED IU/mL (NOT DETECTED)
[2025-07-06 18:09] LABS: FIB-ALT 25 U/L (9-46); FIB-Alpha-2-Macroglobulin 138 mg/dL (106-279); FIB-Apolipoprotein A1 115 mg/dL (94-176); FIB-GGT 23 U/L (3-95); FIB-Haptoglobin 157 mg/dL (43-212); FIB-Total Bilirubin 0.4 mg/dL (0.2-1.2); Liver Fibrosis Score 0.10; Liver Fibrosis Stage F0; Nec Inflam Act Grade A0; Nec Inflam Act Score 0.09
[2025-07-07 13:37] LABS: ~Hepatitis A Antibody IgG 10.10 S/CO (0.00-0.99)
== END 2025-06-30 14:21 | disposition home or self-care (01) ==
LOC: HO.HHCL 14:20
PROVIDERS: PCP Nurse Practitioner Primary Care; Visit Provider Nurse Practitioner Family
DX: Z11.59 Encounter for screening for other viral diseases (principal); Z20.5 Contact with and (suspected) exposure to viral hepatitis; R76.89 Other specified abnormal immunological findings in serum; R60.0 Localized edema
CPT/HCPCS: 36415; 81596; 82570; 84156; 85610; 86708; 87522; 87902